=== PATIENT | female | born 1965 | race Native Hawaiian/Other Pacific Islander ===

== ENCOUNTER 2016-11-30 18:17 | Outpatient (CLI) | payer OTHER ==
[~2016-11-30 18:17] MED LIST: ALPR0.2566 PO; CYCL10TA35 PO; FLUO20CA6 PO; LEVO0.0218 PO; LIDOPATCH TOP; MOBIC7.5 M1 OR; PRILOSEC PO; PRILOSEC40 MG OR
[2016-11-30 18:53] LABS: PLATELET COUNT 335 K/uL (152-353)
[2016-11-30 19:00] LABS: POTASSIUM 4.2 mmol/L (3.6-5.2)
== END 2016-11-30 19:59 | disposition home or self-care (01) ==
LOC: LAB 18:17
PROVIDERS: Nurse Practitioner Family
DX: K21.9 Gastro-esophageal reflux disease without esophagitis (principal); Z79.899 Other long term (current) drug therapy; R53.83 Other fatigue; R53.81 Other malaise
CPT/HCPCS: 80053; 80061; 82652; 83036; 84436; 84443; 85027; 85651

== ENCOUNTER 2017-02-03 17:28 | Outpatient (CLI) | payer OTHER | END 2017-02-03 17:44 | disposition home or self-care (01) | LOC: AMB 17:28 | DX: Z04.1 Encounter for examination and observation following transport accident (principal) ==

== ENCOUNTER 2017-11-16 16:25 | Outpatient (CLI) | payer OTHER ==
[2017-11-16 16:53] LABS: PLATELET COUNT 333 K/uL (152-353)
[2017-11-16 17:04] LABS: POTASSIUM 3.5 mmol/L (3.6-5.2)
== END 2017-11-16 19:23 | disposition home or self-care (01) ==
LOC: LABW 16:25
PROVIDERS: Internal Medicine Rheumatology
DX: G25.81 Restless legs syndrome (principal); M06.4 Inflammatory polyarthropathy; Z79.891 Long term (current) use of opiate analgesic; Z51.81 Encounter for therapeutic drug level monitoring
CPT/HCPCS: 36415; 80053; 85027; 85651; 86140

== ENCOUNTER 2018-07-25 11:44 | Outpatient (CLI) | payer OTHER ==
[2018-07-25 12:23] LABS: POTASSIUM 4.1 mmol/L (3.6-5.2)
[2018-07-25 12:46] LABS: PLATELET COUNT 312 K/uL (152-353)
== END 2018-07-25 20:42 | disposition home or self-care (01) ==
LOC: LABW 11:44
DX: M79.7 Fibromyalgia (principal); R53.83 Other fatigue; R94.5 Abnormal results of liver function studies; Z79.899 Other long term (current) drug therapy
CPT/HCPCS: 36415; 80053; 85027

== ENCOUNTER 2018-08-21 13:04 | Outpatient (CLI) | payer OTHER ==
[2018-08-21 13:19] LABS: PLATELET COUNT 340 K/uL (152-353)
[2018-08-21 15:23] LABS: POTASSIUM 3.9 mmol/L (3.6-5.2)
== END 2018-08-21 19:38 | disposition home or self-care (01) ==
LOC: LABW 13:04
DX: M79.7 Fibromyalgia (principal); R53.83 Other fatigue; R94.5 Abnormal results of liver function studies; Z79.899 Other long term (current) drug therapy
CPT/HCPCS: 36415; 80053; 85027

== ENCOUNTER 2018-10-04 15:45 | Outpatient (CLI) | payer OTHER | END 2018-10-04 23:09 | disposition home or self-care (01) | LOC: LABW 15:45 | DX: G47.8 Other sleep disorders (principal); R53.83 Other fatigue; R94.5 Abnormal results of liver function studies; Z79.899 Other long term (current) drug therapy | CPT/HCPCS: 36415; 86200; 86430 ==

== ENCOUNTER 2018-12-10 14:02 | Outpatient (CLI) | payer OTHER ==
[2018-12-10 14:26] LABS: PLATELET COUNT 302 K/uL (152-353)
[2018-12-10 14:49] LABS: POTASSIUM 4.6 mmol/L (3.6-5.2)
== END 2018-12-10 23:59 | disposition home or self-care (01) ==
LOC: LAB 14:02
PROVIDERS: Nurse Practitioner Family
DX: Z00.00 Encounter for general adult medical examination without abnormal findings (principal); F41.9 Anxiety disorder, unspecified; R53.83 Other fatigue; K21.9 Gastro-esophageal reflux disease without esophagitis; Z79.899 Other long term (current) drug therapy; F32.9 Major depressive disorder, single episode, unspecified
CPT/HCPCS: 80053; 80061; 82306; 82607; 83036; 84439; 84443; 85027

== ENCOUNTER 2019-01-10 15:17 | Outpatient (CLI) | payer OTHER ==
[2019-01-10 16:17] LABS: PLATELET COUNT 326 K/uL (152-353)
[2019-01-10 16:28] LABS: POTASSIUM 3.5 mmol/L (3.6-5.2)
== END 2019-01-10 19:35 | disposition home or self-care (01) ==
LOC: LABW 15:17
PROVIDERS: Nurse Practitioner Family
DX: M19.071 Primary osteoarthritis, right ankle and foot (principal); M19.072 Primary osteoarthritis, left ankle and foot; M79.7 Fibromyalgia; Z79.899 Other long term (current) drug therapy
CPT/HCPCS: 36415; 80053; 85027; 85651; 86140

== ENCOUNTER 2019-04-26 13:31 | Outpatient (CLI) | payer OTHER | END 2019-04-26 16:00 | disposition home or self-care (01) | LOC: RAD 13:31 | DX: G47.8 Other sleep disorders (principal); R53.83 Other fatigue ==

== ENCOUNTER 2019-05-30 14:59 | Outpatient (CLI) | payer OTHER | END 2019-05-30 19:39 | disposition home or self-care (01) | LOC: RAD 14:59 | DX: M54.5 Low back pain (principal) ==

== ENCOUNTER 2020-02-28 10:26 | Outpatient (CLI) | payer OTHER | END 2020-02-28 22:20 | disposition home or self-care (01) | LOC: RAD 10:26 | PROVIDERS: ATTEND Nurse Practitioner Family | DX: M25.561 Pain in right knee (principal); S89.91XA Unspecified injury of right lower leg, initial encounter ==

== ENCOUNTER 2021-07-19 08:08 | Outpatient (CLI) | payer OTHER | END 2021-07-19 19:06 | disposition home or self-care (01) | LOC: RAD 08:08 | PROVIDERS: ATTEND Nurse Practitioner Family | DX: M25.561 Pain in right knee (principal); M25.562 Pain in left knee; M25.572 Pain in left ankle and joints of left foot; M25.571 Pain in right ankle and joints of right foot; M79.7 Fibromyalgia ==

== ENCOUNTER 2021-07-29 09:39 | Outpatient (CLI) | payer OTHER | END 2021-07-29 21:25 | disposition home or self-care (01) | LOC: MAMMO 09:39 | PROVIDERS: ATTEND Nurse Practitioner Family | DX: Z12.31 Encounter for screening mammogram for malignant neoplasm of breast (principal) ==

== ENCOUNTER 2022-04-25 13:30 | Outpatient (CLI) | payer OTHER | END 2022-04-25 21:39 | disposition home or self-care (01) | LOC: RAD 13:30 | PROVIDERS: ATTEND Pain Medicine Interventional Pain Medicine | DX: M54.17 Radiculopathy, lumbosacral region (principal); M54.12 Radiculopathy, cervical region ==

== ENCOUNTER 2022-09-11 08:00 | Emergency (ER) | payer OTHER ==
[~2022-09-11] VITALS: Ht 157.5 cm; Wt 163.3 kg
[2022-09-11 09:05] LABS: PLATELET COUNT 464 K/uL (152-353)
[2022-09-11 09:18] LABS: PARTIAL THROMBOPLASTIN TIME 27.2 SECONDS (23.9-36.7)
[2022-09-11 13:28] LABS: PLATELET COUNT 436 K/uL (152-353)
[2022-09-11 14:45] VITALS: BP 139/83; TEMP 98.2
== END 2022-09-11 14:50 | disposition short-term general hospital (02) ==
LOC: ED 08:00
PROVIDERS: Emergency Medicine
DX: K92.2 Gastrointestinal hemorrhage, unspecified (principal); I21.4 Non-ST elevation (NSTEMI) myocardial infarction; R41.82 Altered mental status, unspecified
CPT/HCPCS: 36415; 80053; 82272; 84484; 85027; 85610; 85730; 86850; 86900; 86901; 93005; 96361; 96365; 96366; 96375; 99285; J2270; J2405; J3490; Q9963

== ENCOUNTER 2022-09-15 19:23 | Emergency (ER) | payer OTHER ==
[~2022-09-15] VITALS: Ht 157.5 cm; Wt 136.1 kg
[2022-09-15 20:07] LABS: PLATELET COUNT 427 K/uL (152-353)
[2022-09-15 20:12] LABS: POTASSIUM 3.5 mmol/L (3.6-5.2)
[2022-09-15 20:18] VITALS: BP 172/97; TEMP 98
== END 2022-09-15 21:30 | disposition home or self-care (01) ==
LOC: ED 19:23
PROVIDERS: Family Medicine
DX: E87.6 Hypokalemia (principal); R53.1 Weakness; E88.81 Metabolic syndrome and other insulin resistance; K92.2 Gastrointestinal hemorrhage, unspecified
CPT/HCPCS: 36415; 80053; 83630; 85027; 87015; 87045; 87177; 87209; 87899; 99283

== ENCOUNTER 2022-12-19 09:07 | Observation (INO) | payer OTHER ==
[~2022-12-19] VITALS: Ht 157.5 cm; Wt 129.9 kg
[2022-12-19 09:08] VITALS: BP 177/76; TEMP 98.3
[2022-12-19 09:40] LABS: PLATELET COUNT 579 K/uL (152-353)
[2022-12-19 09:44] LABS: POTASSIUM 2.5 mmol/L (3.6-5.2)
[2022-12-19 15:58] VITALS: BP 181/93; TEMP 98; Ht 157.5 cm; Wt 129.9 kg
[2022-12-19 16:00] VITALS: BP 161/78; TEMP 98.3
[2022-12-19 20:00] VITALS: BP 152/74; TEMP 98.1
[2022-12-19 23:37] VITALS: BP 159/79; TEMP 98.1
[2022-12-20 03:35] VITALS: BP 146/77; TEMP 98
[2022-12-20 05:09] LABS: PLATELET COUNT 436 K/uL (152-353)
[2022-12-20 05:24] LABS: POTASSIUM 2.5 mmol/L (3.6-5.2)
[2022-12-20 08:00] VITALS: BP 161/73; TEMP 98.3
[2022-12-20] MEDS ORDERED: ALPRAZOLAM PO (09:17)
[2022-12-20] MEDS ORDERED: K-TABS10 MEQ PO (09:18)
[2022-12-20] MEDS ORDERED: AMLODIPINE BESYLATE PO (09:18)
[2022-12-20] MEDS ORDERED: DOK100 MG PO (09:19)
[2022-12-20] MEDS ORDERED: PANTOPRAZOLE 40MG TA PO (09:19)
[2022-12-20] MEDS ORDERED: CITA20TA2 PO (09:20)
[2022-12-20] MEDS ORDERED: CRESTOR5 MG PO (09:20)
[2022-12-20] MEDS ORDERED: PHENTERMINE H37.5 M1 PO (09:21)
[2022-12-20] MEDS ORDERED: HYDROCHLOROTHIAZIDE PO (09:21)
[2022-12-20] MEDS ORDERED: PRAMIPEXOLE1 MG PO (09:22)
[2022-12-20] MEDS ORDERED: HYDR-3182 PO (09:23)
[2022-12-20] MEDS ORDERED: TRAMADOL HYDRO200 MG PO (09:24)
[2022-12-20] MEDS ORDERED: VITAMIN D50000 UNIT PO (09:24)
[2022-12-20] MEDS ORDERED: DULO30CA PO (09:25)
[2022-12-20] MEDS ORDERED: TIZA4TAB5 (09:26)
[2022-12-20] MEDS ORDERED: DULO60CA2 PO (09:27)
[2022-12-20] MEDS ORDERED: GABAPENTIN (09:28)
[2022-12-20] MEDS ORDERED: HYDR200T3 PO (09:28)
[2022-12-20] MEDS ORDERED: TOPAMAX100 MG PO (09:29)
[2022-12-20 12:00] VITALS: BP 155/69; TEMP 98.3
[2022-12-20 16:00] VITALS: BP 154/74; TEMP 98.6
[2022-12-20 20:00] VITALS: BP 155/83; TEMP 98.3
[2022-12-21] VITALS: BP 131/86; TEMP 98.2
[2022-12-21 03:49] VITALS: BP 139/76; TEMP 98.1
[2022-12-21 05:10] LABS: PLATELET COUNT 393 K/uL (152-353)
[2022-12-21 05:15] LABS: POTASSIUM 3.7 mmol/L (3.6-5.2)
[2022-12-21 08:00] VITALS: BP 146/80; TEMP 98.6
[2022-12-21 12:00] VITALS: BP 170/77; TEMP 98.9
[2022-12-21 16:00] VITALS: BP 116/77; TEMP 99
[2022-12-21 20:00] VITALS: BP 137/77; TEMP 98.1
[2022-12-22] VITALS: BP 132/56; TEMP 98.1
[2022-12-22 04:00] VITALS: BP 125/62; TEMP 98.5
[2022-12-22 07:56] VITALS: BP 157/82; TEMP 98.2
[2022-12-22 12:00] VITALS: BP 147/85; TEMP 98
[2022-12-22 16:00] VITALS: BP 126/78; TEMP 98.2
[2022-12-22 17:04] LABS: PLATELET COUNT 403 K/uL (152-353)
[2022-12-22 17:14] LABS: POTASSIUM 4.2 mmol/L (3.6-5.2)
[2022-12-22 20:00] VITALS: BP 149/73; TEMP 98.1
[2022-12-23] VITALS: BP 145/71; TEMP 98.1
[2022-12-23 04:00] VITALS: BP 139/69; TEMP 97.9
[2022-12-23 07:54] VITALS: BP 139/70; TEMP 98.2
== END 2022-12-23 12:00 | disposition home or self-care (01) ==
LOC: ED 09:07 → MED/SURG 11:07
PROVIDERS: Family Medicine; Internal Medicine; ADMIT Nurse Practitioner Family; ATTEND Internal Medicine Endocrinology, Diabetes & Metabolism
DX: K52.89 Other specified noninfective gastroenteritis and colitis (principal); R11.2 Nausea with vomiting, unspecified; R19.7 Diarrhea, unspecified; R10.9 Unspecified abdominal pain; E87.6 Hypokalemia; D72.828 Other elevated white blood cell count; F41.8 Other specified anxiety disorders; I10 Essential (primary) hypertension; K21.9 Gastro-esophageal reflux disease without esophagitis; E03.8 Other specified hypothyroidism
CPT/HCPCS: 36415; 80048; 80053; 83690; 83735; 84484; 85027; 87015; 87045; 87324; 87449; 87899; 93005; 96361; 96365; 96366; 96367; 96372; 96375; 96376; 99221; 99284; G0378; J0744; J1650; J2270; J2405; J3475; J3490; Q9963

== ENCOUNTER 2022-12-23 13:28 | Emergency (ER) | payer OTHER ==
[~2022-12-23] VITALS: Ht 157.5 cm; Wt 127.0 kg
[2022-12-23 13:28] VITALS: TEMP 98.2
[~2022-12-23 13:28] MED LIST changes: +ALPRAZOLAM PO; +AMLODIPINE BESYLATE PO; +CITA20TA2 PO; +CRESTOR5 MG PO; +DOK100 MG PO; +DULO30CA PO; +DULO60CA2 PO; +GABAPENTIN; +HYDR-3182 PO; +HYDR200T3 PO; +HYDROCHLOROTHIAZIDE PO; +K-TABS10 MEQ PO; +PANTOPRAZOLE 40MG TA PO; +PHENTERMINE H37.5 M1 PO; +PRAMIPEXOLE1 MG PO; +TIZA4TAB5; +TOPAMAX100 MG PO; +TRAMADOL HYDRO200 MG PO; +VITAMIN D50000 UNIT PO
[2022-12-23 15:58] LABS: PLATELET COUNT 465 K/uL (152-353)
[2022-12-23 15:59] LABS: POTASSIUM 4.3 mmol/L (3.6-5.2)
[2022-12-23 19:15] VITALS: BP 117/54
[2023-01-06] MEDS ORDERED: LEVO0.0529 PO (10:40)
== END 2022-12-23 19:20 | disposition home or self-care (01) ==
LOC: ED 13:28
PROVIDERS: Family Medicine
DX: S50.11XA Contusion of right forearm, initial encounter (principal); S30.0XXA Contusion of lower back and pelvis, initial encounter; W19.XXXA Unspecified fall, initial encounter; Y93.89 Activity, other specified; Y92.009 Unspecified place in unspecified non-institutional (private) residence as the place of occurrence of the external cause; Y99.9 Unspecified external cause status
CPT/HCPCS: 80053; 80307; 81002; 82550; 85027; 96360; 96372; 99284; J1885